=== PATIENT | female | born 1990 | race Two or more races ===

== ENCOUNTER 2024-08-29 11:29 | Emergency (ER) | payer MEDICAID, SELFPAY ==
[2024-08-29 11:30] VITALS: BMI 42.9
[2024-08-29 11:41] VITALS: BP 123/85; PULSE 98; RESP 19; TEMP 37; O2SAT 97
--- NOTE | 2024-08-29 11:49 | XR_ITS ---
Examination: PA lateral chest 2 views Technique: Upright PA lateral chest 2 views Exam date and time: August 29, 2024 11:57 AM Comparison November 18, 2023 Indications: Coughing sore throat beginning 3 days ago. Findings: Normal heart size. Lungs are clear. The osseous structures are intact Impression: No active disease
--- NOTE | 2024-08-29 13:46 | EDNOTE_ITS ---
<Statement entered by Leticia Matt MD - 09/06/24 16:19> As co-signing physician, I was present and available for consult prn. I concur with the plan and care as documented by the midlevel provider. ED General RME/HPI General Chief complaint: General Adult/Misc Complain Stated complaint: CONGESTION/SORE THROAT x 3 DAYS Time Seen by Provider: 08/29/24 11:31 Arrival date/time: 08/29/24 11:29 34-year-old female presents to the emergency department today complaints of cough, congestion runny nose and bodyaches ongoing for the last 3 days there are no other associated symptoms or aggravating factors no other modifying factors, patient denies taking medication before coming to ER today Limitations: no limitations Related Data Home Medications ?Medication ?Instructions ?Recorded ?Confirmed glipizide 10 mg tablet, extended 10 mg PO QDAY 11/18/23 11/18/23 release 24 hr sitagliptin phosphate 50 1 tab PO BID 11/18/23 11/18/23 mg-metformin 1,000 mg tablet (Janumet) Allergies Allergy/AdvReac Type Severity Reaction Status Date / Time No Known Allergies Allergy Verified 08/29/24 11:33 Review of Systems Review of Systems Systems Reviewed: All systems reviewed, normal except as documented Constitutional Constitutional: Reports system reviewed and no additional complaints, except as documented, Denies fever(s) and Denies headache(s) Eyes Eyes: Reports system reviewed and no additional complaints, except as documented and Denies blurry vision ENT Ears, Nose, Mouth, and Throat: Reports system reviewed and no additional complaints, except as documented, Denies headache(s), Reports nasal congestion and Reports nasal discharge Cardiovascular Cardiovascular: Reports system reviewed and no additional complaints, except as documented, Denies chest pain and Denies dyspnea Respiratory Respiratory: Reports system reviewed and no additional complaints, except as documented, Reports chest congestion, Reports cough and Denies dyspnea Gastrointestinal Gastrointestinal: Reports system reviewed and no additional complaints, except as documented and Denies abdominal pain Integumentary/Breasts Skin/Breast: Reports system reviewed and no additional complaints, except as documented and Denies rash Neurologic Neurologic: Reports system reviewed and no additional complaints, except as documented, Reports as per HPI and Denies headache(s) Past Medical History Past Medical History CARDIAC: Negative Cardiac Disorders or Congestive Heart Failure RESPIRATORY: Negative Chronic Obstructive Pulmonary Disease (COPD) or Asthma GENITOURINARY: Negative Renal Disease ENDOCRINE: Positive Endocrine Disorders and Diabetes Mellitus Type 2; Negative Diabetes Mellitus Type 1 HEMATOLOGIC: Negative Sickle Cell Disease Social History SMOKING STATUS: Never smoker ED Exam General Limitations: Present no limitations General appearance: Present alert and in no apparent distress Head Head exam: Present atraumatic, normocephalic and normal inspection Eye Eye exam: Present normal appearance, PERRL and EOMI; Absent conjunctival injection ENT ENT exam: Present normal exam, normal oropharynx and mucous membranes moist Neck Neck exam: Present normal inspection, full ROM and trachea midline Chest Chest inspection: Present normal inspection and symmetric chest wall rise Respiratory Respiratory exam: Present normal lung sounds bilaterally; Absent respiratory distress Cardiovascular Cardiovascular exam: Present regular rate, normal rhythm and normal heart sounds Abdominal Exam Abdominal exam: Present soft and normal bowel sounds; Absent distention, tenderness, guarding, rebound or rigidity Extremities Exam Extremities exam: Present normal inspection and full ROM Back Exam Back exam: Present normal inspection and full ROM Neurological Exam Neurological exam: Present alert, oriented X3, CN II-XII intact, normal gait and reflexes normal; Absent motor sensory deficit Psychiatric Psychiatric exam: Present normal affect and normal mood Skin Skin exam: Present warm, dry, intact and normal color; Absent rash Course Quality Measures none Orders Category Date Time Status Bedside COVID-19 Antigen Test NOW Care 08/29/24 11:49 Completed XR chest 2V Stat Exams 08/29/24 11:49 Completed Vital Signs Vital signs: Vital Signs Temperature 98.6 F 08/29/24 11:41 Pulse Rate 98 08/29/24 11:41 Respiratory Rate 19 08/29/24 11:41 Blood Pressure 123/85 H 08/29/24 11:41 Pulse Oximetry (%) 97 08/29/24 11:41 Oxygen Delivery Method Room Air 08/29/24 11:41 O2 saturation 97% room air within normal limits MDM Patient data External records reviewed:: [facility] previous records Clinical information provided by:: patient Social determinants that could affect healthcare access:: none Patient has the following chronic illnesses:: Diabetes How is presenting disease/condition affected by chronic disease/condition?: uneffected by Evaluation data The following diagnostics were reviewed and interpreted by me:: lab results and radiology exam(s) Lab and/or radiology exams considered but not ordered:: Labs and radiology obtained Interpretation Summary: Reviewed by me Medications Medications considered but not ordered:: Given Medication administrations:: Given Consultations Consultation(s) initiated? (list below): No Diagnosis Differential Diagnosis ED Complaint MDM: URI viral illness, COVID-19, pneumonia Most likely diagnosis given after review of the tests above:: URI Admission Indicated Admission indicated?: not indicated Explain why admission is indicated or not indicated:: No criteria Admission Request Was there a request for admission?: No Disposition Plan Disposition Plan: Discharge Discharge Attestation Discharge Attestation: The patient and all family members were given an opportunity to ask questions and understood the discharge instructions. Discharge instructions specifically effects, indications for sooner follow up or return to the emergency department, and the expected course of current diagnosis. Patient condition: Stable Medical Decision Making MDM Narrative MDM Narrative: 34-year-old female presents to the emergency department today complaints of cough, congestion runny nose and bodyaches ongoing for the last 3 days there are no other associated symptoms or aggravating factors no other modifying factors, patient denies taking medication before coming to ER today On exam patient well-appearing patient does not appear ill or toxic in no acute distress patient is hemodynamically stable Patient checked for flu which came back negative Chest x-ray obtained no acute pneumonic infiltrates noted no acute pulmonary process Symptoms highly consistent with viral illness Patient discharged home in no distress to follow-up with primary care doctor in the next 24 to 48 hours and for any worsening symptoms to return to the ER immediately Differential Diagnosis Differential Diagnosis: URI viral illness, COVID-19, pneumonia Medical Records Medical records reviewed: Yes I reviewed the patient's medical records. Lab Data Lab results reviewed: Yes I reviewed the patient's lab results. Radiology Data Radiology results reviewed: Yes I reviewed the patient's radiology results. Discharge Plan Plan Patient Disposition: HOME (Self Care) Disposition Comment: Stable Prescriptions/Referrals Prescriptions/Med Rec: No Action glipizide 10 mg Tablet Extended Release 24hr 10 mg PO QDAY Janumet 50-1,000 mg Tablet 1 tab PO BID Problem List Clinical Impression: Viral syndrome Patient/Caregiver Discharge Instructions Education Materials: ED Viral Syndrome (Adult) Additional Instructions: Please follow up with your primary care doctor in the next 24-48hrs for any worsening symptoms return here immediately Please take your medication prescribed by your primary care doctor Print Language: Romansh Stand Alone Forms: Sandra Award Info., Work/School Release, Patient Portal Info Letter PA/CARTON MAKING MACHINIST Supervising Physician PA/CARTON MAKING MACHINIST Supervising Physician: Dr. MATT
== END 2024-08-29 14:46 | disposition home or self-care (01) ==
LOC: SERX 14:08
PROVIDERS: Emergency Provider Emergency Medicine; PCP Physician Assistant Medical
DX: B34.9 Viral infection, unspecified (principal); R05.9 Cough, unspecified
CPT/HCPCS: 71046; 87811; 99283

== ENCOUNTER 2024-12-28 06:05 | Emergency (ER) | payer MEDICAID, SELFPAY ==
[2024-12-28 06:05] VITALS: BMI 38.2
[2024-12-28 06:10] VITALS: BP 139/89; PULSE 87; RESP 18; TEMP 37.2; O2SAT 98
--- NOTE | 2024-12-28 06:20 | EDNOTE_ITS ---
ED Abdominal Pain RME/HPI General Chief Complaint: Abdominal Pain Stated complaint: LOWER PELVIC PAIN X3 DAYS Time seen by provider: 12/28/24 06:19 Arrival date/time: 12/28/24 06:05 Limitations: no limitations RME / HPI RME / HPI narrative: A 34-year-old female presents with three days of lower abdominal pain and diarrhea. She reports one episode of vomiting yesterday and two days of dysuria. She has a known history of type 2 diabetes mellitus (DM2). She denies vaginal discharge and has not experienced fever. There is no recent use of antibiotics. Related Data Home Medications ?Medication ?Instructions ?Recorded ?Confirmed glipizide 10 mg tablet, extended 10 mg PO QDAY 4 11/18/23 release 24 hr sitagliptin phosphate 50 1 tab PO BID 11/18/23 mg-metformin 1,000 mg tablet (Janumet) Previous Rx's ?Medication ?Instructions ?Recorded ondansetron HCl 4 mg tablet 4 mg PO Q8H 3 days #9 tabs 12/28/24 Allergies Allergy/AdvReac Type Severity Reaction Status Date / Time No Known Allergies Allergy Verified 08/29/24 11:33 Review of Systems Review of Systems Systems Reviewed: All systems reviewed, normal except as documented Past Medical History Past Medical History ENDOCRINE: Positive Endocrine Disorders and Diabetes Mellitus Type 2 Social History SMOKING STATUS: Never smoker ED Exam General Limitations: Present no limitations General appearance: Present alert and in no apparent distress Head Head exam: Present atraumatic Eye Eye exam: Present normal appearance, PERRL and EOMI ENT ENT exam: Present normal exam, normal oropharynx and mucous membranes moist Neck Neck exam: Present normal inspection, full ROM and trachea midline Chest Chest inspection: Present normal inspection and symmetric chest wall rise Respiratory Respiratory exam: Present normal lung sounds bilaterally Cardiovascular Cardiovascular exam: Present regular rate, normal rhythm and normal heart sounds Abdominal Exam Abdominal exam: Present soft and normal bowel sounds Abdominal tenderness: Present suprapubic (mild) Extremities Exam Extremities exam: Present normal inspection and full ROM Back Exam Back exam: Present normal inspection and full ROM Neurological Exam Neurological exam: Present alert, oriented X3 and CN II-XII intact Psychiatric Psychiatric exam: Present normal affect and normal mood Skin Skin exam: Present warm, dry, intact and normal color Course Quality Measures none Orders Category Date Time Status Discharge Routine Discharge 12/28/24 11:09 Active Beta Hydroxybutyrate Stat Lab 12/28/24 07:45 Completed CBC Stat Lab 12/28/24 07:45 Completed CMP [Comprehensive Metabolic Panel] Stat Lab 12/28/24 07:45 Completed HCG Qualitative,Urine Stat Lab 12/28/24 06:42 Completed Urinalysis, C/S if Indicated Stat Lab 12/28/24 06:42 Completed Sodium Chloride 0.9% 1000 ml [Ns] 1,000 ml Med 12/28/24 07:19 Discontinued IV 999 mls/hr Vital Signs Vital signs: Vital Signs Temperature 98.9 F 12/28/24 06:10 Pulse Rate 87 12/28/24 06:10 Respiratory Rate 18 12/28/24 06:10 Blood Pressure 139/89 H 12/28/24 06:10 Pulse Oximetry (%) 98 12/28/24 06:10 Oxygen Delivery Method Room Air 12/28/24 06:10 Pulse ox is 98% on room air which is adequate. Abdominal Pain MDM Patient data External records reviewed:: [facility] previous records (I reviewed ED visit on 08/29/2024 for viral syndrome) Clinical information provided by:: patient Social determinants that could affect healthcare access:: none Patient has the following chronic illnesses:: Diabetes How is presenting disease/condition affected by chronic disease/condition?: uneffected by Evaluation data The following diagnostics were reviewed and interpreted by me:: lab results Lab and/or radiology exams considered but not ordered:: None Interpretation Summary: CBC and CMP within normal limits Medications / Prescriptions Medications or Prescriptions considered but not ordered:: None Medication administrations:: Medication Administration History Discontinued Medications Sodium Chloride (Ns) 1,000 mls @ 999 mls/hr IV .Q1H1M ONE Stop: 12/28/24 08:19 Last Infusion: 12/28/24 09:00 Dose: Infused Documented By: Admin: 12/28/24 07:58 Dose: 999 mls/hr Documented By: SAVANNA See above Consultations Consultation(s) initiated? (list below): No Diagnosis Differential diagnosis abdominal pain: abdominal pain, calculus of kidney, gastroenteritis and other (UTI) Most likely diagnosis given after review of the tests above:: Gastroenteritis Dehydration Admission Indicated Admission indicated?: not indicated Admission Request Was there a request for admission?: No Disposition Plan Disposition Plan: Discharge Discharge Attestation Discharge Attestation: The patient and all family members were given an opportunity to ask questions and understood the discharge instructions. Discharge instructions specifically effects, indications for sooner follow up or return to the emergency department, and the expected course of current diagnosis. Patient condition: Stable Discharge Plan Plan Patient Disposition: HOME (Self Care) Patient condition on transfer: Stable Prescriptions/Referrals Prescriptions/Med Rec: New ondansetron HCl 4 mg tablet 4 mg PO Q8H 3 Days Qty: 9 0RF No Action glipizide 10 mg Tablet Extended Release 24hr 10 mg PO QDAY Janumet 50-1,000 mg Tablet 1 tab PO BID Referrals: Faith Pastor PA-C [Primary Care Provider] - In 1 week Problem List Clinical Impression: Gastroenteritis, Dehydration Patient/Caregiver Discharge Instructions Discharge Activity: activity as tolerated Education Materials: ED Gastroenteritis, Noninfectious Print Language: Panamanian Stand Alone Forms: Sandra Award Info., Patient Portal Info Letter
[2024-12-28 06:46] LABS: Collection Type, Urine Clean Catch
[2024-12-28 06:55] LABS: HCG Qualitative,Urine Negative
[2024-12-28 07:00] LABS: Bacteria,Urine Rare; Bilirubin,Urine Negative (Negative); Blood,Urine Negative (Negative); Clarity,Urine Clear (Clear/Hazy); Color,Urine Lt-Yellow (Lt Yel-Yel); Culture Indicated,Urine Not Indicated; Glucose, Urine 4+ (Negative); Ketones,Urine Negative (Negative); Leukocyte Esterase,Urine Positive (Negative); Nitrite,Urine Negative (Negative); PH,Urine 5.5 (5.0-7.0); Protein,Urine Negative (Neg - Trace); RBC,Urine 63 /hpf (0-3); Specific Gravity,Urine 1.045 (1.001-1.035); Squamous Epithelial Cell,Urine 11 /hpf (0-5); Urobilinogen,Urine Negative mg/dL (0.0-1.0); WBC,Urine 10 /hpf (0-5)
[2024-12-28 07:57] VITALS: BP 127/71; PULSE 85; RESP 19; TEMP 37; O2SAT 100
[2024-12-28] MEDS: SODIUM CHLORIDE 0.9% 1000 ML 1,000 ML 999 ML IV (07:58)
[2024-12-28 08:17] LABS: Basophils % (Auto) 0 % (0-2.5); Eosinophils # (Auto) 0.1 Thou/mm3 (0.0-0.5); Eosinophils % (Auto) 1 % (0-10); Hematocrit 39.2 % (36.0-46.0); Hemoglobin 12.6 g/dL (12.0-16.0); Immature Granulocytes % (Auto) 0 % (0-0); Immature Granulocytes Auto 0.04 Thou/mm3 (0.00-0.00); Lymphocytes # (Auto) 2.2 Thou/mm3 (1.0-4.8); Lymphocytes % (Auto) 21 % (10-50); Mean Corpuscular HGB Conc 32.1 g/dl (31.0-37.0); Mean Corpuscular Hemoglobin 26.6 pg (25.0-35.0); Mean Corpuscular Volume 83 fL (80-100); Monocytes # (Auto) 0.7 Thou/mm3 (0.0-0.8); Monocytes % (Auto) 6 % (0-12); Neutrophils # (Auto) 7.4 Thou/mm3 (1.8-7.7); Neutrophils % (Auto) 71 % (37-80); Nucleated Red Blood Cell % 0 /100 WBC (0); Platelet Count 315 Thou/mm3 (140-440); RDW Standard Deviation 48.4 fL (36.4-46.3); Red Blood Count 4.74 Miln/mm3 (4.00-5.20); White Blood Count 10.5 Thou/mm3 (3.6-11.0)
[2024-12-28 10:15] VITALS: BP 138/86; PULSE 79; RESP 16; TEMP 37.1; O2SAT 98
[2024-12-28 10:59] LABS: Alanine Aminotransferase 17 U/L (10-49); Albumin, Serum 4.2 gm/dL (3.5-5.0); Albumin/Globulin Ratio 1.4 (1.2-2.2); Alkaline Phosphatase 74 U/L (46-116); Anion Gap 11 (7-16); Aspartate Amino Transferase 16 U/L (0-34); BUN/Creatinine Ratio 28 Ratio (12-20); Bilirubin,Total 0.5 mg/dL (0.3-1.2); Blood Urea Nitrogen 17 mg/dL (9-23); Calcium 9.2 mg/dL (8.3-10.6); Calcium (Corrected) 9.2 mg/dL (8.5-10.1); Carbon Dioxide 24.3 mMol/L (20.0-31.0); Chloride 106 mMol/L (98-107); Creatinine (Component) 0.6 mg/dL (0.6-1.3); Estimated Creatinine Clearance 158.4 mL/min (>60); Glucose 119 mg/dL (74-106); Osmolality,Calculated 283 (275-295); Sodium 141 mMol/L (136-145); Total Protein 7.2 gm/dL (5.7-8.2); eGFR > 60 See Note
[2024-12-28 11:03] LABS: Beta Hydroxybutyrate 0.2 mmol/L (<0.6)
== END 2024-12-28 11:35 | disposition home or self-care (01) ==
PROVIDERS: Emergency Provider Emergency Medicine; PCP Physician Assistant Medical
DX: K52.9 Noninfective gastroenteritis and colitis, unspecified (principal); E86.0 Dehydration; E11.9 Type 2 diabetes mellitus without complications
CPT/HCPCS: 36415; 80053; 81001; 81025; 82010; 85025; 96360; 99284; J7030